=== PATIENT | female | born 1970 | race Caucasian/White ===

== ENCOUNTER → 2024-01-04 07:27 | Outpatient (REF) | payer BC, SELFPAY ==
[2024-01-04 08:18] LABS: % Basophils 0.6 % (0-2); % Eosinophils 1.2 % (0-6); % Immature Granulocytes 0.5 % (0-0.5); % Lymphocytes 29.5 % (20.5-51.1); % Monocytes 8.2 % (1.7-9.3); Absolute Basophils 0.1 10^3/uL (0-0.2); Absolute Eosinophils 0.1 10^3/uL (0-0.7); Absolute Immature Granulocytes 0.1 10^3/uL (0-0.05); Absolute Monocytes 0.8 10^3/uL (0.1-0.6); Hematocrit 37.6 % (37.0-47.0); Hemoglobin 12.8 g/dL (12.0-16.0); Mean Corpuscular Hgb 29.8 pg (27.0-31.0); Mean Corpuscular Volume 87.6 fL (81.0-99.0); Mean Platelet Volume 10.7 fL (7.4-10.4); Nucleated Red Blood Cells % 0 %; Platelet Count 321 10^3/uL (130-400); Red Blood Cell Count 4.29 10^6/uL (4.20-5.40); Red Cell Dist. Width 13.2 % (11.5-14.5)
[2024-01-04 08:37] LABS: Glycohemoglobin (HgbA1c) 6.4 % (4.0-5.6)
[2024-01-04 08:48] LABS: ALT (SGPT) 18 U/L (0-35); AST (SGOT) 23 U/L (14-36); Albumin 3.7 g/dl (3.5-5.0); Alkaline Phosphatase 83 U/L (38-126); Blood Urea Nitrogen 10 mg/dl (7-17); Calcium 9.3 mg/dl (8.4-10.2); Carbon Dioxide 27 mmol/L (22-30); Chloride 99 mmol/L (98-107); Glucose 152 mg/dl (70-99); HDL Cholesterol 49 mg/dl; LDL Cholesterol, Calculated 24 mg/dl; Magnesium 1.9 mg/dl (1.6-2.3); Potassium 4.3 mmol/L (3.5-5.1); Sodium 136 mmol/L (135-145); Total Bilirubin 0.6 mg/dl (0.2-1.3); Total Cholesterol 106 mg/dl (50-199); Total Protein 6.5 g/dl (6.3-8.2); Triglyceride 168 mg/dl (10-149); Very Low Density Lipoprotein 33 mg/dl (0-30); eGFR > 60.00
[2024-01-04 08:51] LABS: Microalbumin, Random Urine 1.3 mg/dl (0.6-1.7); Microalbumin/creatinine Ratio 7.9 mg/g
== END ==
LOC: REG 07:27
PROVIDERS: ATTENDING PHYSICIAN Physician Assistant Medical; REFERRING PHYSICIAN Physician Assistant
DX: E11.65 Type 2 diabetes mellitus with hyperglycemia (principal); K21.9 Gastro-esophageal reflux disease without esophagitis; I10 Essential (primary) hypertension; E78.1 Pure hyperglyceridemia; E78.6 Lipoprotein deficiency; K76.0 Fatty (change of) liver, not elsewhere classified; E55.9 Vitamin D deficiency, unspecified
CPT/HCPCS: 36415; 80053; 80061; 82043; 82306; 82570; 83036; 83735; 85025

== ENCOUNTER → 2024-05-16 07:36 | Outpatient (REF) | payer BC, SELFPAY ==
[2024-05-16 08:11] LABS: % Basophils 0.6 % (0-2); % Eosinophils 2.8 % (0-6); % Immature Granulocytes 0.3 % (0-0.5); % Lymphocytes 39.4 % (20.5-51.1); % Monocytes 9.6 % (1.7-9.3); % Neutrophils 47.3 % (42.2-75.2); Absolute Eosinophils 0.2 10^3/uL (0-0.7); Absolute Lymphocytes 2.8 10^3/uL (1.2-3.4); Absolute Monocytes 0.7 10^3/uL (0.1-0.6); Absolute Neutrophils 3.4 10^3/uL (1.4-6.5); Hematocrit 37.7 % (37.0-47.0); Hemoglobin 13.1 g/dL (12.0-16.0); Mean Corp Hgb Conc. 34.7 g/dL (33.0-37.0); Mean Corpuscular Hgb 30.1 pg (27.0-31.0); Mean Corpuscular Volume 86.7 fL (81.0-99.0); Mean Platelet Volume 11.4 fL (7.4-10.4); Nucleated Red Blood Cells % 0 %; Platelet Count 273 10^3/uL (130-400); Red Blood Cell Count 4.35 10^6/uL (4.20-5.40); Red Cell Dist. Width 13.7 % (11.5-14.5); White Blood Cell Count 7.1 10^3/uL (4.8-10.8)
[2024-05-16 08:46] LABS: ALT (SGPT) 25 U/L (0-35); AST (SGOT) 31 U/L (14-36); Albumin 4.1 g/dl (3.5-5.0); Alkaline Phosphatase 70 U/L (38-126); Blood Urea Nitrogen 9 mg/dl (7-17); Calcium 9.2 mg/dl (8.4-10.2); Carbon Dioxide 26 mmol/L (22-30); Chloride 104 mmol/L (98-107); Glucose 122 mg/dl (70-99); Potassium 4.4 mmol/L (3.5-5.1); Sodium 139 mmol/L (135-145); Total Bilirubin 0.5 mg/dl (0.2-1.3); Total Protein 7.1 g/dl (6.3-8.2); eGFR > 60.00
== END ==
LOC: REG 07:36
PROVIDERS: ATTENDING PHYSICIAN Physician Assistant; FAMILY PHYSICIAN Physician Assistant Medical
DX: E11.65 Type 2 diabetes mellitus with hyperglycemia (principal)
CPT/HCPCS: 36415; 80053; 83036; 85025

== ENCOUNTER → 2024-05-17 16:58 | Outpatient (REF) | payer BC, SELFPAY | LOC: RCS 16:58 | PROVIDERS: ATTENDING PHYSICIAN Physician Assistant Medical | DX: R01.1 Cardiac murmur, unspecified (principal); Z85.3 Personal history of malignant neoplasm of breast | CPT/HCPCS: 93306 ==

== ENCOUNTER → 2024-07-12 14:09 | Outpatient (REF) | payer BC, SELFPAY | LOC: PAVMRI 14:09 | PROVIDERS: ATTENDING PHYSICIAN Orthopaedic Surgery; FAMILY PHYSICIAN Physician Assistant Medical | DX: M25.572 Pain in left ankle and joints of left foot (principal) | CPT/HCPCS: 73721 ==

== ENCOUNTER → 2024-08-17 08:55 | Outpatient (REF) | payer BC, SELFPAY | LOC: WDC 08:55 | PROVIDERS: ATTENDING PHYSICIAN Family Medicine Geriatric Medicine; FAMILY PHYSICIAN Physician Assistant Medical | DX: Z12.31 Encounter for screening mammogram for malignant neoplasm of breast (principal) | CPT/HCPCS: 77063; 77067 ==

== ENCOUNTER → 2024-09-07 14:55 | Outpatient (REF) | payer BC, SELFPAY | LOC: WDC 14:55 | PROVIDERS: ATTENDING PHYSICIAN Physician Assistant; FAMILY PHYSICIAN Physician Assistant Medical | DX: N63.12 Unspecified lump in the right breast, upper inner quadrant (principal) | CPT/HCPCS: 76642 ==

== ENCOUNTER → 2024-10-17 08:23 | Outpatient (REF) | payer BC, SELFPAY ==
[2024-10-17 09:50] LABS: % Basophils 0.6 % (0-2); % Eosinophils 1.5 % (0-6); % Immature Granulocytes 0.4 % (0-0.5); % Lymphocytes 32.9 % (20.5-51.1); % Monocytes 8.9 % (1.7-9.3); % Neutrophils 55.7 % (42.2-75.2); Absolute Basophils 0.1 10^3/uL (0-0.2); Absolute Eosinophils 0.1 10^3/uL (0-0.7); Absolute Lymphocytes 2.8 10^3/uL (1.2-3.4); Absolute Monocytes 0.8 10^3/uL (0.1-0.6); Absolute Neutrophils 4.7 10^3/uL (1.4-6.5); Hematocrit 40.7 % (37.0-47.0); Hemoglobin 14.1 g/dL (12.0-16.0); Mean Corp Hgb Conc. 34.6 g/dL (33.0-37.0); Mean Corpuscular Hgb 31.2 pg (27.0-31.0); Mean Platelet Volume 11.1 fL (7.4-10.4); Nucleated Red Blood Cells % 0 %; Platelet Count 294 10^3/uL (130-400); Red Blood Cell Count 4.52 10^6/uL (4.20-5.40); Red Cell Dist. Width 13.4 % (11.5-14.5); White Blood Cell Count 8.5 10^3/uL (4.8-10.8)
[2024-10-17 10:12] LABS: ALT (SGPT) 22 U/L (0-35); AST (SGOT) 26 U/L (14-36); Alkaline Phosphatase 82 U/L (38-126); Blood Urea Nitrogen 10 mg/dl (7-17); Calcium 8.8 mg/dl (8.4-10.2); Carbon Dioxide 27 mmol/L (22-30); Chloride 103 mmol/L (98-107); Glucose 120 mg/dl (70-99); HDL Cholesterol 54 mg/dl; LDL Cholesterol, Calculated 47 mg/dl; Potassium 4.8 mmol/L (3.5-5.1); Sodium 139 mmol/L (135-145); Total Bilirubin 0.4 mg/dl (0.2-1.3); Total Cholesterol 125 mg/dl (50-199); Total Protein 6.8 g/dl (6.3-8.2); Triglyceride 124 mg/dl (10-149); Very Low Density Lipoprotein 24 mg/dl (0-30); eGFR > 60.00
[2024-10-17 10:27] LABS: Glycohemoglobin (HgbA1c) 5.7 % (4.0-5.6)
[2024-10-17 10:35] LABS: Microalbumin, Random Urine 1.6 mg/dl (0.6-1.7); Microalbumin/creatinine Ratio 9.5 mg/g
== END ==
LOC: REG 08:23
PROVIDERS: ATTENDING PHYSICIAN Physician Assistant Medical; REFERRING PHYSICIAN Physician Assistant
DX: Z00.00 Encounter for general adult medical examination without abnormal findings (principal)
CPT/HCPCS: 36415; 80053; 80061; 82043; 82570; 83036; 85025

== ENCOUNTER → 2025-01-11 08:12 | Outpatient (REF) | payer BC, SELFPAY ==
[2025-01-11 09:54] LABS: % Basophils 0.7 % (0-2); % Immature Granulocytes 0.5 % (0-0.5); % Monocytes 8.3 % (1.7-9.3); % Neutrophils 56.5 % (42.2-75.2); Absolute Basophils 0.1 10^3/uL (0-0.2); Absolute Eosinophils 0.2 10^3/uL (0-0.7); Absolute Lymphocytes 2.7 10^3/uL (1.2-3.4); Absolute Monocytes 0.7 10^3/uL (0.1-0.6); Absolute Neutrophils 4.7 10^3/uL (1.4-6.5); Hematocrit 40.5 % (37.0-47.0); Hemoglobin 13.6 g/dL (12.0-16.0); Mean Corp Hgb Conc. 33.6 g/dL (33.0-37.0); Mean Corpuscular Hgb 29.8 pg (27.0-31.0); Mean Corpuscular Volume 88.8 fL (81.0-99.0); Mean Platelet Volume 10.4 fL (7.4-10.4); Nucleated Red Blood Cells % 0 %; Platelet Count 310 10^3/uL (130-400); Red Blood Cell Count 4.56 10^6/uL (4.20-5.40); Red Cell Dist. Width 13.4 % (11.5-14.5); White Blood Cell Count 8.3 10^3/uL (4.8-10.8)
[2025-01-11 10:47] LABS: ALT (SGPT) 28 U/L (0-35); AST (SGOT) 32 U/L (14-36); Albumin 4.6 g/dl (3.5-5.0); Alkaline Phosphatase 91 U/L (38-126); Blood Urea Nitrogen 13 mg/dl (7-17); Calcium 9.4 mg/dl (8.4-10.2); Carbon Dioxide 28 mmol/L (22-30); Chloride 97 mmol/L (98-107); Glucose 121 mg/dl (70-99); Potassium 4.4 mmol/L (3.5-5.1); Sodium 136 mmol/L (135-145); Total Bilirubin 0.9 mg/dl (0.2-1.3); Total Protein 7.3 g/dl (6.3-8.2); eGFR > 60.00
[2025-01-11 11:09] LABS: Glycohemoglobin (HgbA1c) 5.9 % (4.0-5.6)
== END ==
LOC: RAD 08:12
PROVIDERS: ATTENDING PHYSICIAN Physician Assistant; FAMILY PHYSICIAN Family Medicine Geriatric Medicine
DX: E11.65 Type 2 diabetes mellitus with hyperglycemia (principal); R22.2 Localized swelling, mass and lump, trunk; Z85.3 Personal history of malignant neoplasm of breast
CPT/HCPCS: 36415; 80053; 83036; 85025

== ENCOUNTER → 2025-01-16 11:37 | Outpatient (REF) | payer BC, SELFPAY | LOC: RAD 11:37 | PROVIDERS: ATTENDING PHYSICIAN Family Medicine Geriatric Medicine; FAMILY PHYSICIAN Physician Assistant Medical | DX: Z85.3 Personal history of malignant neoplasm of breast (principal); R22.2 Localized swelling, mass and lump, trunk | CPT/HCPCS: 71260; Q9967 ==

== ENCOUNTER → 2025-01-18 13:52 | Outpatient (REF) | payer BC, SELFPAY | LOC: WDC 13:52 | PROVIDERS: ATTENDING PHYSICIAN Family Medicine Geriatric Medicine; FAMILY PHYSICIAN Physician Assistant Medical | DX: R92.8 Other abnormal and inconclusive findings on diagnostic imaging of breast (principal); N63.12 Unspecified lump in the right breast, upper inner quadrant | CPT/HCPCS: 76642 ==

== ENCOUNTER → 2025-02-12 10:17 | Outpatient (REF) | payer BC, SELFPAY | LOC: WDC 10:17 | PROVIDERS: ATTENDING PHYSICIAN Family Medicine Geriatric Medicine; FAMILY PHYSICIAN Physician Assistant Medical | DX: N63.11 Unspecified lump in the right breast, upper outer quadrant (principal) | CPT/HCPCS: 76642; 77061; 77065 ==

== ENCOUNTER → 2025-02-14 07:14 | Outpatient (REF) | payer BC, SELFPAY ==
--- NOTE | 2025-02-14 08:45 | OID.BR.INTR ---
JEANINED Breast Navigator - Initial
- -
Date of Contact: 02/14/25
Met with patient. Patient given written information on navigator service available at [facility]. Will follow up as needed per protocol.
== END ==
LOC: WDC 07:14
PROVIDERS: ATTENDING PHYSICIAN Family Medicine Geriatric Medicine
DX: N63.14 Unspecified lump in the right breast, lower inner quadrant (principal)
CPT/HCPCS: 88305; 19083; 88341; 88360; A4648

== ENCOUNTER → 2025-02-28 15:05 | Outpatient (REF) | payer BC, SELFPAY ==
[2025-02-28 16:05] LABS: HCG, Serum Qualitative Screen Negative
[2025-02-28 16:40] LABS: FSH 8.7 mIU/ml
[2025-02-28 16:56] LABS: Estradiol 144.4 pg/ml
== END ==
LOC: REG 15:05
PROVIDERS: ATTENDING PHYSICIAN Nurse Practitioner Adult Health; FAMILY PHYSICIAN Physician Assistant Medical; OTHER PHYSICIAN Radiology Diagnostic Radiology
DX: C50.411 Malignant neoplasm of upper-outer quadrant of right female breast (principal); Z01.812 Encounter for preprocedural laboratory examination; Z36.9 Encounter for antenatal screening, unspecified
CPT/HCPCS: 36415; 82670; 83001; 83002; 84703

== ENCOUNTER → 2025-03-01 07:42 | Outpatient (REF) | payer BC, SELFPAY | LOC: PET 07:42 | PROVIDERS: ATTENDING PHYSICIAN Surgery | DX: C50.411 Malignant neoplasm of upper-outer quadrant of right female breast (principal) | CPT/HCPCS: 78815; A9552 ==

== ENCOUNTER → 2025-03-06 16:33 | Outpatient (REF) | payer BC, SELFPAY | LOC: MRI 3T 16:33 | PROVIDERS: ATTENDING PHYSICIAN Surgery; FAMILY PHYSICIAN Physician Assistant Medical | DX: C50.211 Malignant neoplasm of upper-inner quadrant of right female breast (principal) | CPT/HCPCS: 77049; A9585 ==

== ENCOUNTER → 2025-04-25 08:17 | Outpatient (REF) | payer BC, SELFPAY ==
[2025-04-25 09:45] LABS: % Basophils 0.8 % (0-2); % Eosinophils 2.4 % (0-6); % Immature Granulocytes 0.3 % (0-0.5); % Lymphocytes 34.8 % (20.5-51.1); % Monocytes 8.7 % (1.7-9.3); Absolute Basophils 0.1 10^3/uL (0-0.2); Absolute Eosinophils 0.2 10^3/uL (0-0.7); Absolute Lymphocytes 2.6 10^3/uL (1.2-3.4); Absolute Monocytes 0.7 10^3/uL (0.1-0.6); Hematocrit 37.5 % (37.0-47.0); Hemoglobin 12.7 g/dL (12.0-16.0); Mean Corp Hgb Conc. 33.9 g/dL (33.0-37.0); Mean Corpuscular Volume 88.7 fL (81.0-99.0); Mean Platelet Volume 11.1 fL (7.4-10.4); Nucleated Red Blood Cells % 0 %; Platelet Count 285 10^3/uL (130-400); Red Blood Cell Count 4.23 10^6/uL (4.20-5.40); Red Cell Dist. Width 13.6 % (11.5-14.5); White Blood Cell Count 7.6 10^3/uL (4.8-10.8)
[2025-04-25 10:24] LABS: ALT (SGPT) 17 U/L (0-35); AST (SGOT) 22 U/L (14-36); Albumin 4.3 g/dl (3.5-5.0); Alkaline Phosphatase 86 U/L (38-126); Blood Urea Nitrogen 12 mg/dl (7-17); Calcium 9.1 mg/dl (8.4-10.2); Carbon Dioxide 25 mmol/L (22-30); Chloride 108 mmol/L (98-107); Glucose 120 mg/dl (70-99); HDL Cholesterol 56 mg/dl; LDL Cholesterol, Calculated 55 mg/dl; Potassium 4.6 mmol/L (3.5-5.1); Sodium 140 mmol/L (135-145); Total Bilirubin 0.7 mg/dl (0.2-1.3); Total Cholesterol 139 mg/dl (50-199); Triglyceride 143 mg/dl (10-149); Very Low Density Lipoprotein 28 mg/dl (0-30); eGFR > 60.00
[2025-04-25 10:39] LABS: Vitamin D, 25-OH*** 38.4 ng/mL (30-80)
[2025-04-25 10:53] LABS: TSH 1.94 uIU/ml (0.47-4.68)
[2025-04-25 11:34] LABS: Glycohemoglobin (HgbA1c) 5.9 % (4.0-5.6)
== END ==
LOC: REG 08:17
PROVIDERS: ATTENDING PHYSICIAN Physician Assistant Medical; REFERRING PHYSICIAN Physician Assistant
DX: E11.65 Type 2 diabetes mellitus with hyperglycemia (principal); F41.1 Generalized anxiety disorder; E78.1 Pure hyperglyceridemia; I10 Essential (primary) hypertension; E78.6 Lipoprotein deficiency; K21.9 Gastro-esophageal reflux disease without esophagitis; E55.9 Vitamin D deficiency, unspecified; K76.0 Fatty (change of) liver, not elsewhere classified; E66.01 Morbid (severe) obesity due to excess calories; R01.1 Cardiac murmur, unspecified
CPT/HCPCS: 36415; 80053; 80061; 82306; 83036; 84443; 85025

== ENCOUNTER → 2025-06-07 15:07 | Outpatient (REF) | payer BC, SELFPAY ==
[2025-06-16 09:21] LABS: HPV, High Risk Not Detected; HPV, High Risk Source Cervical
== END ==
LOC: CPAP 15:07
PROVIDERS: ATTENDING PHYSICIAN Obstetrics & Gynecology
DX: Z01.411 Encounter for gynecological examination (general) (routine) with abnormal findings (principal)
CPT/HCPCS: 87624

== ENCOUNTER 2025-06-27 08:58 | Outpatient (RCR) | payer BC, SELFPAY | END 2025-06-27 23:59 | disposition home or self-care (01) | LOC: RPT 08:58 | PROVIDERS: ATTENDING PHYSICIAN Surgery; FAMILY PHYSICIAN Physician Assistant Medical | DX: C50.211 Malignant neoplasm of upper-inner quadrant of right female breast (principal); R53.0 Neoplastic (malignant) related fatigue; G62.0 Drug-induced polyneuropathy; L90.5 Scar conditions and fibrosis of skin; R29.3 Abnormal posture; M62.81 Muscle weakness (generalized) | CPT/HCPCS: 97110; 97140; 97163; 97530 ==

== ENCOUNTER → 2025-07-24 08:28 | Outpatient (REF) | payer BC, SELFPAY ==
[2025-07-24 09:36] LABS: Hematocrit 36.7 % (37.0-47.0); Hemoglobin 11.8 g/dL (12.0-16.0); Mean Corp Hgb Conc. 32.2 g/dL (33.0-37.0); Mean Corpuscular Volume 90.6 fL (81.0-99.0); Nucleated Red Blood Cells % 0 %; Platelet Count 280 10^3/uL (130-400); Red Cell Dist. Width 17.7 % (11.5-14.5)
[2025-07-24 10:00] LABS: ALT (SGPT) 17 U/L (0-35); AST (SGOT) 23 U/L (14-36); Albumin 3.4 g/dl (3.5-5.0); Alkaline Phosphatase 67 U/L (38-126); Blood Urea Nitrogen 12 mg/dl (7-17); Calcium 8.9 mg/dl (8.4-10.2); Carbon Dioxide 26 mmol/L (22-30); Chloride 108 mmol/L (98-107); Glucose 97 mg/dl (70-99); Potassium 4.2 mmol/L (3.5-5.1); Sodium 139 mmol/L (135-145); Total Protein 5.6 g/dl (6.3-8.2); eGFR > 60.00
[2025-07-24 10:33] LABS: Glycohemoglobin (HgbA1c) 5.8 % (4.0-5.6)
== END ==
LOC: REG 08:28
PROVIDERS: ATTENDING PHYSICIAN Physician Assistant; FAMILY PHYSICIAN Physician Assistant Medical
DX: E11.65 Type 2 diabetes mellitus with hyperglycemia (principal)
CPT/HCPCS: 36415; 80053; 83036; 85025

== ENCOUNTER 2025-07-25 13:14 | Outpatient (RCR) | payer BC, SELFPAY | END 2025-07-25 23:59 | disposition home or self-care (01) | LOC: RPT 13:14 | PROVIDERS: ATTENDING PHYSICIAN Surgery; FAMILY PHYSICIAN Physician Assistant Medical | DX: C50.211 Malignant neoplasm of upper-inner quadrant of right female breast (principal); R53.0 Neoplastic (malignant) related fatigue; G62.0 Drug-induced polyneuropathy; L90.5 Scar conditions and fibrosis of skin; R29.3 Abnormal posture; M62.81 Muscle weakness (generalized); Z73.6 Limitation of activities due to disability | CPT/HCPCS: 97110; 97112; 97140; 97530 ==

== ENCOUNTER 2025-08-28 10:13 | Outpatient (RCR) | payer BC, SELFPAY | END 2025-08-28 23:59 | disposition home or self-care (01) | LOC: RPT 10:13 | PROVIDERS: ATTENDING PHYSICIAN Surgery; FAMILY PHYSICIAN Physician Assistant Medical | DX: C50.211 Malignant neoplasm of upper-inner quadrant of right female breast (principal); R53.0 Neoplastic (malignant) related fatigue; G62.0 Drug-induced polyneuropathy; L90.5 Scar conditions and fibrosis of skin; R29.3 Abnormal posture; M62.81 Muscle weakness (generalized); Z73.6 Limitation of activities due to disability; R26.89 Other abnormalities of gait and mobility | CPT/HCPCS: 97110; 97112; 97140; 97530 ==

== ENCOUNTER 2025-09-13 06:35 | Day surgery (SDC) | payer BC, SELFPAY ==
[2025-09-13 07:53] LABS: Glucose - Point of Care 117 mg/dl (70-99)
== END 2025-09-13 09:35 | disposition home or self-care (01) ==
LOC: GI 06:35
PROVIDERS: ATTENDING PHYSICIAN Internal Medicine
DX: Z12.11 Encounter for screening for malignant neoplasm of colon (principal); D12.3 Benign neoplasm of transverse colon; K64.9 Unspecified hemorrhoids; Z86.0101 Personal history of adenomatous and serrated colon polyps; Z98.890 Other specified postprocedural states
CPT/HCPCS: 45385; 82962; 88305

== ENCOUNTER 2025-09-25 07:49 | Outpatient (RCR) | payer BC, SELFPAY | END 2025-09-25 23:59 | disposition home or self-care (01) | LOC: RPT 07:49 | PROVIDERS: ATTENDING PHYSICIAN Surgery; FAMILY PHYSICIAN Physician Assistant Medical | DX: C50.211 Malignant neoplasm of upper-inner quadrant of right female breast (principal); R53.0 Neoplastic (malignant) related fatigue; G62.0 Drug-induced polyneuropathy; L90.5 Scar conditions and fibrosis of skin; R29.3 Abnormal posture; M62.81 Muscle weakness (generalized); Z73.6 Limitation of activities due to disability; R26.89 Other abnormalities of gait and mobility | CPT/HCPCS: 97110; 97112; 97140; 97530 ==

== ENCOUNTER 2025-10-23 08:28 | Outpatient (RCR) | payer BC, SELFPAY | END 2025-10-23 23:59 | disposition home or self-care (01) | LOC: RPT 08:28 | PROVIDERS: ATTENDING PHYSICIAN Surgery; FAMILY PHYSICIAN Physician Assistant Medical | DX: C50.211 Malignant neoplasm of upper-inner quadrant of right female breast (principal); R53.0 Neoplastic (malignant) related fatigue; G62.0 Drug-induced polyneuropathy; L90.5 Scar conditions and fibrosis of skin; R29.3 Abnormal posture; M62.81 Muscle weakness (generalized); Z73.6 Limitation of activities due to disability; R26.89 Other abnormalities of gait and mobility | CPT/HCPCS: 97110; 97112; 97140; 97530 ==

== ENCOUNTER → 2025-10-23 08:37 | Outpatient (REF) | payer BC, SELFPAY ==
[2025-10-23 10:10] LABS: Hematocrit 38.6 % (37.0-47.0); Hemoglobin 12.8 g/dL (12.0-16.0); Mean Corp Hgb Conc. 33.2 g/dL (33.0-37.0); Mean Corpuscular Volume 89.8 fL (81.0-99.0); Nucleated Red Blood Cells % 0 %; Platelet Count 275 10^3/uL (130-400); Red Cell Dist. Width 14.6 % (11.5-14.5)
[2025-10-23 10:28] LABS: Glycohemoglobin (HgbA1c) 6.0 % (4.0-5.9)
[2025-10-23 10:52] LABS: Vitamin D, 25-OH*** 39.8 ng/mL (30-80)
[2025-10-23 11:06] LABS: TSH 1.43 uIU/ml (0.47-4.68)
[2025-10-23 16:51] LABS: ALT (SGPT) 20 U/L (0-35); AST (SGOT) 26 U/L (14-36); Albumin 3.9 g/dl (3.5-5.0); Alkaline Phosphatase 76 U/L (38-126); Blood Urea Nitrogen 10 mg/dl (7-17); Calcium 9.1 mg/dl (8.4-10.2); Carbon Dioxide 23 mmol/L (22-30); Chloride 108 mmol/L (98-107); Glucose 97 mg/dl (70-99); HDL Cholesterol 47 mg/dl; LDL Cholesterol, Calculated 42 mg/dl; Magnesium 1.8 mg/dl (1.6-2.3); Potassium 4.6 mmol/L (3.5-5.1); Sodium 139 mmol/L (135-145); Total Protein 6.7 g/dl (6.3-8.2); Very Low Density Lipoprotein 22 mg/dl (0-30); eGFR > 60.00
== END ==
LOC: REG 08:37
PROVIDERS: ATTENDING PHYSICIAN Physician Assistant Medical
DX: E11.65 Type 2 diabetes mellitus with hyperglycemia (principal); E55.9 Vitamin D deficiency, unspecified; E78.2 Mixed hyperlipidemia; E78.6 Lipoprotein deficiency; F41.1 Generalized anxiety disorder; E83.42 Hypomagnesemia; I10 Essential (primary) hypertension
CPT/HCPCS: 36415; 80053; 80061; 82306; 83036; 83735; 84443; 85025

== ENCOUNTER 2025-11-27 08:09 | Outpatient (RCR) | payer BC, SELFPAY | END 2025-11-27 23:59 | disposition home or self-care (01) | LOC: RPT 08:09 | PROVIDERS: ATTENDING PHYSICIAN Surgery; FAMILY PHYSICIAN Physician Assistant Medical | DX: C50.211 Malignant neoplasm of upper-inner quadrant of right female breast (principal); R53.0 Neoplastic (malignant) related fatigue; G62.0 Drug-induced polyneuropathy; L90.5 Scar conditions and fibrosis of skin; R29.3 Abnormal posture; M62.81 Muscle weakness (generalized); Z73.6 Limitation of activities due to disability; R26.89 Other abnormalities of gait and mobility | CPT/HCPCS: 97110; 97140; 97530 ==